=== PATIENT | male | born 2000 | race Caucasian/White ===

== ENCOUNTER 2018-02-09 15:16 | Day surgery (SDC) | payer BC ==
[~2018-02-09] VITALS: Ht 182.9 cm; Wt 79.8 kg
[2018-02-09] MEDS ORDERED: fentaNYL INJECTION 100 MCG/2 ML AMP ONE (15:59)
[2018-02-09] MEDS ORDERED: ONDANSETRON 4 MG/2 ML (SDV) Z0FRAN ONE (15:59)
[2018-02-09 16:12] LABS: BASOPHILS % (AUTO) 0 % (0-10); EOSINOPHILS % (AUTO) 0 % (0-10); HEMATOCRIT 44 % (40-54); HEMOGLOBIN 15.4 G/DL (13.3-17.7); LYMPHOCYTES % (AUTO) 6 % (12-44); MEAN CORPUSCULAR HEMOGLOBIN 29 PG (25-34); MEAN CORPUSCULAR HGB CONC 35 G/DL (32-36); MEAN CORPUSCULAR VOLUME 84 FL (80-99); MEAN PLATELET VOLUME 9.4 FL (7.4-10.4); MONOCYTES # (AUTO) 0.7 X 10^3 (0.0-1.0); MONOCYTES % (AUTO) 4 % (0-12); NEUTROPHILS % (AUTO) 89 % (42-75); PLATELET COUNT 278 10^3/uL (130-400); RED BLOOD COUNT 5.28 10^6/uL (4.35-5.85); WHITE BLOOD COUNT 16.7 10^3/uL (4.3-11.0)
--- NOTE | 2018-02-09 16:13 | ED Abdominal Pain ---
General Stated Complaint: STOMACH PAIN SENT FROM URGENT CARE Source of Information: Patient Exam Limitations: No Limitations History of Present Illness Date Seen by Provider: February 09, 2018 Time Seen by Provider: 16:10 Initial Comments The patient is a 17-year-old white male sent from an immediate care facility. He had developed abdominal pain in the periumbilical area yesterday. It abated for a while only to return. He finds it to be more comfortable to assume a hip flexion position. He also reports some loose stools. He has nausea but no vomiting. Has no previous history of abdominal surgeries Timing/Duration: 12-24 Hours Severity/Quality: Moderate Location: Periumbilical Radiation: No Radiation Activities at Onset: Activity Associated Symptoms: Denies Symptoms Allergies and Home Medications Allergies Coded Allergies: cefdinir (Unverified Allergy, Unknown, 02/09/18) Uncoded Allergies: PCN (Allergy, Unknown, 02/09/18) Home Medications No Active Prescriptions or Reported Meds Patient Home Medication List Home Medication List Reviewed: Yes Review of Systems Constitutional: see HPI EENTM: No Symptoms Reported Respiratory: No Symptoms Reported Cardiovascular: No Symptoms Reported Gastrointestinal: See HPI Genitourinary: No Symptoms Reported Musculoskeletal: no symptoms reported Skin: no symptoms reported Psychiatric/Neurological: No Symptoms Reported Endocrine: No Symptoms Reported Hematologic/Lymphatic: No Symptoms Reported Past Nvhzvaw-Dqjske-Fwqmae Hx Patient Social History Recent Foreign Travel: No Contact w/Someone Who Travel: No Physical Exam Vital Signs Vital Signs - First Documented 02/09/18 15:51 Temp 98.2 Pulse 64 Resp 18 B/P (MAP) 124/82 Capillary Refill : General Appearance: mild distress HEENT: normal ENT inspection Neck: non-tender, full range of motion, supple, normal inspection Respiratory: chest non-tender, lungs clear, normal breath sounds, no respiratory distress, no accessory muscle use Cardiovascular: normal peripheral pulses, regular rate, rhythm, no edema, no gallop, no JVD, no murmur Gastrointestinal: other (decreased bowel sounds. No guarding or rebound) Neurologic/Psychiatric: business systems developer II-XII nml as tested, no motor/sensory deficits, alert, normal mood/affect, oriented x 3 Skin: normal color, warm/dry Lymphatic: no adenopathy Progress/Results/Core Measures Results/Orders Lab Results Laboratory Tests Test 02/09/18 16:00 Range/Units White Blood Count 16.7 H 4.3-11.0 10^3/uL Red Blood Count 5.28 4.35-5.85 10^6/uL Hemoglobin 15.4 13.3-17.7 G/DL Hematocrit 44 40-54 % Mean Corpuscular Volume 84 80-99 FL Mean Corpuscular Hemoglobin 29 25-34 PG Mean Corpuscular Hemoglobin Concent 35 32-36 G/DL Red Cell Distribution Width 13.0 10.0-14.5 % Platelet Count 278 130-400 10^3/uL Mean Platelet Volume 9.4 7.4-10.4 FL Neutrophils (%) (Auto) 89 H 42-75 % Lymphocytes (%) (Auto) 6 L 12-44 % Monocytes (%) (Auto) 4 0-12 % Eosinophils (%) (Auto) 0 0-10 % Basophils (%) (Auto) 0 0-10 % Neutrophils # (Auto) 15.0 H 1.8-7.8 X 10^3 Lymphocytes # (Auto) 1.0 1.0-4.0 X 10^3 Monocytes # (Auto) 0.7 0.0-1.0 X 10^3 Eosinophils # (Auto) 0.0 0.0-0.3 10^3/uL Basophils # (Auto) 0.0 0.0-0.1 10^3/uL Neutrophils % (Manual) 84 % Lymphocytes % (Manual) 6 % Monocytes % (Manual) 5 % Eosinophils % (Manual) 1 % Basophils % (Manual) 0 % Metamyelocytes % 1 % Band Neutrophils 3 % Blood Morphology Comment NORMAL Sodium Level 138 135-145 MMOL/L Potassium Level 4.3 3.6-5.0 MMOL/L Chloride Level 103 98-107 MMOL/L Carbon Dioxide Level 24 21-32 MMOL/L Anion Gap 11 5-14 MMOL/L Blood Urea Nitrogen 12 7-18 MG/DL Creatinine 0.83 0.60-1.30 MG/DL Estimat Glomerular Filtration Rate > 60 BUN/Creatinine Ratio 14 Glucose Level 108 H 70-105 MG/DL Calcium Level 9.9 8.5-10.1 MG/DL Total Bilirubin 1.2 H 0.1-1.0 MG/DL Aspartate Amino Transf (AST/SGOT) 20 5-34 U/L Alanine Aminotransferase (ALT/SGPT) 23 0-55 U/L Alkaline Phosphatase 75 40-136 U/L Total Protein 7.8 6.4-8.2 GM/DL Albumin 4.7 H 3.2-4.5 GM/DL My Orders Orders - MAL BENJAMIN MD Fentanyl Injection (Sublimaze Injection (02/09/18 15:59) Cbc With Automated Diff (02/09/18 16:02) Comprehensive Metabolic Panel (02/09/18 16:02) Fentanyl Injection (Sublimaze Injection (02/09/18 16:15) Ondansetron Injection (Zofran Injectio (02/09/18 16:15) Ondansetron Injection (Zofran Injectio (02/09/18 15:59) Manual Differential (02/09/18 16:00) Ct Abd/Pelv W (Appendicitis) (02/09/18 16:36) Iohexol Injection (Omnipaque 350 Mg/Ml 1 (02/09/18 16:45) Ns (Ivpb) (Sodium Chloride 0.9% Ivpb Bag (02/09/18 16:45) Medications Given in ED Current Medications Medications Dose Ordered Sig/Heber Route Start Time Stop Time Status Last Admin Dose Admin Fentanyl Citrate 50 mcg ONCE ONCE IVP 02/09/18 16:15 02/09/18 16:16 DC 02/09/18 16:08 50 MCG Iohexol 100 ml ONCE ONCE IV 02/09/18 16:45 02/09/18 16:53 DC 02/09/18 16:52 100 ML Ondansetron HCl 8 mg ONCE ONCE IVP 02/09/18 16:15 02/09/18 16:16 DC 02/09/18 16:08 8 MG Sodium Chloride 100 ml ONCE ONCE IV 02/09/18 16:45 02/09/18 16:53 DC 02/09/18 16:52 100 ML Vital Signs/I&O 02/09/18 15:51 Temp 98.2 Pulse 64 Resp 18 B/P (MAP) 124/82 Departure Communication (Admissions) CT scan was somewhat ambivalent relative to the appendix. Discussed with Dr. Layne at 1755 and the patient will be admitted for observation. Impression Primary Impression: abdominal pain rule out appendicitis Disposition: ADMITTED INPATIENT Condition: Stable/Unchanged Admissions Decision to Admit Reason: Admit from ER (General) Decision to Admit/Date: February 09, 2018 Time/Decision to Admit Time: 18:13 Departure-Patient Inst. Referrals: BETTY ZAPATA DO (PCP/Family) Primary Care Physician Scripts No Active Prescriptions or Reported Meds MAL BENJAMIN MD February 09, 2018 16:13
[2018-02-09] MEDS ORDERED: ONDANSETRON 4 MG/2 ML (SDV) Z0FRAN IVP ONE (16:15)
[2018-02-09] MEDS ORDERED: fentaNYL INJECTION 100 MCG/2 ML AMP IVP ONE (16:15)
[2018-02-09 16:26] LABS: ALANINE AMINOTRANSFERASE 23 U/L (0-55); ALBUMIN 4.7 GM/DL (3.2-4.5); ALKALINE PHOSPHATASE 75 U/L (40-136); BILIRUBIN,TOTAL 1.2 MG/DL (0.1-1.0); BUN/CREATININE RATIO 14; CALCIUM 9.9 MG/DL (8.5-10.1); CARBON DIOXIDE 24 MMOL/L (21-32); CHLORIDE 103 MMOL/L (98-107); CREATININE SERUM 0.83 MG/DL (0.60-1.30); GFR ESTIMATED > 60; GLUCOSE 108 MG/DL (70-105); POTASSIUM 4.3 MMOL/L (3.6-5.0); SODIUM 138 MMOL/L (135-145); TOTAL PROTEIN 7.8 GM/DL (6.4-8.2)
[2018-02-09 16:37] LABS: BAND NEUTROPHILS 3 %; BASOPHILS % (MANUAL) 0 %; EOSINOPHILS % (MANUAL) 1 %; LYMPHOCYTES % (MANUAL) 6 %; METAMYELOCYTES % 1 %; MONOCYTES % (MANUAL) 5 %; NEUTROPHILS % (MANUAL) 84 %; RBC MORPH NORMAL
[2018-02-09] MEDS ORDERED: IOHEXOL 350 MG/ML 100 ML (OMNIPAQUE 350) VIAL IV ONE (16:45)
[2018-02-09] MEDS ORDERED: NS 100 ML (IVPB) BAG IV ONE (16:45)
--- NOTE | 2018-02-09 17:27 | Diagnostic Imaging Report ---
PROCEDURE: CT abdomen and pelvis with contrast, rule out appendicitis. TECHNIQUE: Multiple contiguous axial images were obtained through the abdomen and pelvis after the administration of intravenous contrast. INDICATION: Right lower quadrant abdominal pain. COMPARISON: None. FINDINGS: The appendix is fluid dilated, measuring up to 8.5 mm. There is no significant inflammatory change in the mesenteric fat. There is no abscess. However, there is trace free fluid in the pelvis which is typically abnormal with a male patient. There is some prominence and edema involving the prostate. Please correlate clinically to exclude prostatitis. Distal ureters and urinary bladder are grossly normal. Course and caliber of the large and small bowel are normal. Solid organs, gallbladder, vascular structures and lung bases are grossly unremarkable. Bony structures are age-appropriate. IMPRESSION: 1. Prominent noninflamed appendix which could represent a very mild acute appendicitis. Please correlate clinically. 2. Prominent edematous appearing prostate with trace free fluid in the pelvis. This could be a sequela of prostatitis. The fluid also could be secondary to a very mild appendicitis. 3. No abscess, free air or bowel obstruction. Dictated by: Dictated on workstation # [id number]
[2018-02-09] MEDS ORDERED: CIPROFLOXACIN IV 400MG/200ML 200 ML IV ONE (18:30)
[2018-02-09 19:10] VITALS: BP 127/72
--- NOTE | 2018-02-09 19:26 | Progress Note-Pre Operative ---
Pre-Operative Progress Note H&P Reviewed The H&P was reviewed, patient examined and no changes noted. Date Seen by Provider: February 09, 2018 Time Seen by Provider: 19:00 Date H&P Reviewed: February 09, 2018 Time H&P Reviewed: 19:00 Pre-Operative Diagnosis: acute appendicitis MARIA FERNANDA FELDER MD February 09, 2018 19:26
--- NOTE | 2018-02-09 19:55 | HISTORY AND PHYSICAL ---
DATE OF SERVICE: ATTENDING PRIMARY CARE PHYSICIAN: Dr. Hartley. HISTORY OF PRESENT ILLNESS: The patient is a 17-year-old male who presented to the Emergency Department with abdominal pain. He had reported developing periumbilical pain yesterday and then this went away; however, he then had more localized pain towards the right lower abdomen. He was seen at an urgent care facility and sent to the Emergency Department. He reports that the pain is still present and a torso flexion position decreases the pain. He also does report few episodes of diarrhea. No red blood per rectum, no dark tarry stools. No nausea, vomiting. A CT scan was performed which did show a significantly long and prominent appendix; however, no surrounding fluid. PAST MEDICAL HISTORY: None. PAST SURGICAL HISTORY: None. ALLERGIES: PENICILLIN. MEDICATIONS: None. SOCIAL HISTORY: Negative smoke, negative alcohol. FAMILY HISTORY: Noncontributory. VITAL SIGNS: Temperature 98.2, blood pressure 124/82, pulse 64, respirations 18. REVIEW OF SYSTEMS: This is a well-nourished male currently in no acute distress. He is not experiencing any shortness of breath or difficulty breathing. No chest pain, palpitations, diaphoresis. No nausea, vomiting with intermittent episodes of diarrhea, no red blood per rectum, no dark tarry stools. No fever, chills, no recent inadvertent weight loss. All other review of systems negative. PHYSICAL EXAMINATION: CHEST: Clear. Good breath sounds bilaterally. HEART: Regular, no murmurs. EXTREMITIES: No lower extremity edema, negative Homans sign. HEENT: No scleral icterus. No cervical lymphadenopathy. ABDOMEN: Soft, nondistended. There is pain around McBurney's point with voluntary guarding, no rebound tenderness. SKIN: Warm and dry. LABORATORY DATA: WBC 16.7, hemoglobin 15.4, hematocrit 44, platelets 278. ASSESSMENT AND PLAN: A 17-year-old male with right lower quadrant abdominal pain with equivocal CT scan findings which include a long and prominent appendix with slight dilatation which may indicate an early acute appendicitis. We will admit him and repeat labs as well as repeat examination and if he continues to have pain, we will proceed with a diagnostic laparoscopy and laparoscopic appendectomy. Job ID: [id number] DocumentID: [id number] Dictated Date: 02/09/2018 19:25:55 Granite Sandblaster Apprentice Date: 02/09/2018 19:54:06 Dictated By: MARIA FERNANDA FELDER MD
[2018-02-09] MEDS ORDERED: fentaNYL INJECTION 100 MCG/2 ML AMP IV PRN (20:45)
[2018-02-09] MEDS: metroNIDAZOLE 500 MG/100 ML IVPB (PRE-MIX) IV SCH (21:13)
[2018-02-09] MEDS: NS IV 1000 ML 1,000 ML IV SCH (21:13)
[2018-02-10 00:12] VITALS: BP 102/61
[2018-02-10] MEDS ORDERED: ONDANSETRON 4 MG/2 ML (SDV) Z0FRAN IVP PRN ×2 (01:45→14:30)
[2018-02-10 03:22] VITALS: BP 105/60
[2018-02-10] MEDS: metroNIDAZOLE 500 MG/100 ML IVPB (PRE-MIX) IV SCH ×3 (04:48→13:07)
[2018-02-10 06:26] LABS: BASOPHILS % (AUTO) 0 % (0-10); EOSINOPHILS # (AUTO) 0.1 10^3/uL (0.0-0.3); EOSINOPHILS % (AUTO) 1 % (0-10); HEMATOCRIT 43 % (40-54); HEMOGLOBIN 14.7 G/DL (13.3-17.7); LYMPHOCYTES # (AUTO) 2.5 X 10^3 (1.0-4.0); LYMPHOCYTES % (AUTO) 22 % (12-44); MEAN CORPUSCULAR HEMOGLOBIN 29 PG (25-34); MEAN CORPUSCULAR HGB CONC 34 G/DL (32-36); MEAN CORPUSCULAR VOLUME 86 FL (80-99); MEAN PLATELET VOLUME 9.6 FL (7.4-10.4); MONOCYTES # (AUTO) 0.9 X 10^3 (0.0-1.0); MONOCYTES % (AUTO) 8 % (0-12); NEUTROPHILS % (AUTO) 70 % (42-75); PLATELET COUNT 240 10^3/uL (130-400); RED CELL DISTRIBUTION WIDTH 13.1 % (10.0-14.5); WHITE BLOOD COUNT 11.4 10^3/uL (4.3-11.0)
[2018-02-10] MEDS ORDERED: CIPROFLOXACIN 400 MG/D5W 200 ML (PRE-MIX) IV SCH (06:30)
[2018-02-10 08:00] VITALS: BP 109/68
[2018-02-10] MEDS: NS IV 1000 ML 1,000 ML IV SCH (10:35)
[2018-02-10 12:00] VITALS: BP 112/61
[2018-02-10] MEDS ORDERED: BUP/EPI 0.5% 1:200,000 (SENSORCAINE) 30 ML VIAL ONE (12:26)
[2018-02-10] MEDS ORDERED: ROCURONIUM 10 MG/ML 5 ML SYRINGE IV ONE (12:36)
[2018-02-10] MEDS ORDERED: proPOfol 200 MG/20 ML (DIPRIVAN) VIAL IV ONE (12:36)
[2018-02-10] MEDS ORDERED: ONDANSETRON 4 MG/2 ML (SDV) Z0FRAN ONE (12:36)
[2018-02-10] MEDS ORDERED: LIDOCAINE PF 2% 5 ML (XYLOCAINE) VIAL ONE (12:36)
[2018-02-10] MEDS ORDERED: fentaNYL INJECTION 100 MCG/2 ML AMP ONE ×2 (12:37→13:43)
[2018-02-10] MEDS ORDERED: MIDAZOLAM 2 MG/2 ML (VERSED) VIAL ONE (12:37)
[2018-02-10] MEDS: LACTATED RINGERS 1,000 ML IV SCH ×2 (13:08→14:00)
[2018-02-10] MEDS ORDERED: SEVOFLURANE (ULTANE) 15 ML INHAL SOLN ONE (13:43)
[2018-02-10] MEDS ORDERED: DEXAMETHASONE 10 MG/ML (DECADRON) 1 ML VIAL ONE (13:43)
--- NOTE | 2018-02-10 14:01 | Progress Note-Post Operative ---
Post-Operative Progess Note Surgeon (s)/Watch Commander (s) Surgeon MARIA FERNANDA FELDER MD Watch Commander: clara wong NOUGAT CANDY MAKER HELPER Pre-Operative Diagnosis acute appendicitis Post-Operative Diagnosis same Procedure & Operative Findings Date of Procedure 02/10/18 Procedure Performed/Findings laparoscopic appendectomy Anesthesia Type GET Estimated Blood Loss Estimated blood loss (mL): minimal Specimens/Packing Specimens Removed appendix MARIA FERNANDA FELDER MD February 10, 2018 2:01 pm
[2018-02-10] MEDS ORDERED: HYDR-34 PO (14:04)
--- NOTE | 2018-02-10 14:04 | Discharge Inst-Surgical ---
D/C Lap Instructions-[place] New, Converted, or Re-Newed RX: RX on Chart Follow Up Appt in 2 weeks Activity as tolerated No driving for 24 hours No driving while on pain medications Incentive Spirometry use every 2 hours while awake Regular Diet Symptoms to Report: Fever over 101 degree F, Nausea/Vomiting Infection Signs and Symptoms to report: Increased redness, Foul odor of wound, Increased drainage Bathing instructions: May shower Operative Area Clean/Dry; Keep incision clean/dry If any problems/questions: Contact your physician or go to Emergency Room MARIA FERNANDA FELDER MD February 10, 2018 2:04 pm
--- NOTE | 2018-02-10 14:24 | Anesthesia-General Post-Op ---
General Patient Condition Mental Status/LOC: Same as Preop Cardiovascular: Satisfactory Nausea/Vomiting: Absent Respiratory: Satisfactory Pain: Controlled Complications: Absent Post Op Complications Complications None Follow Up Care/Instructions Patient Instructions None needed. Anesthesia/Patient Condition Patient Condition Patient is doing well, no complaints, stable vital signs, no apparent adverse anesthesia problems. No complications reported per nursing. TIMOTHY WILSON CRNA February 10, 2018 14:24
[2018-02-10] MEDS ORDERED: MEPERIDINE (DEMEROL) INJ 50 MG/ML IVP PRN (14:30)
[2018-02-10] MEDS ORDERED: morphine INJ 10 MG/ML 1ML (SYR OR VIAL) IVP PRN (14:30)
[2018-02-10] MEDS ORDERED: NEOSTIGMINE 1 MG/ML 5 ML SYRINGE ONE (14:33)
[2018-02-10] MEDS ORDERED: GLYCOPYRROLATE 0.2 MG/ML (ROBINUL) 2 ML VIAL ONE (14:33)
--- OUTSIDE RECORDS SUMMARY | 2018-02-10 16:27 | XMS REPORT ---
Author SIMON Shaffer Organization [employer] Address Unknown Phone Unavailable Care Team Providers Care Real Estate Rental Agent Name Role Phone SIMON JO CP Unavailable Allergies No Known Allergies Problems Problem Type Condition Code Onset Dates Condition Status Problem Allergic rhinitis due to pollen 477.0 Active Problem Acute pharyngitis 462 Active Problem Other general medical examination for administrative purposes V70.3 Active Problem Need for prophylactic vaccination and inoculation, Influenza V04.81 Active Assessment Encounter for immunization Z23 Active Medications No Known Medications Procedures Procedure Coding System Code Date SINGLE IMMUNIZATION ADMIN CPT-4 41930 Aug 19, 2015 FLUZONE QUAD (3 & UP)-SINGLE DOSE VIAL-SANOFI PASTEUR-2014 CPT-4 49029 Aug 19, 2015 Results No Known Results Immunizations Vaccine Administration Date FLUZONE QUAD (3 & UP)-SINGLE DOSE VIAL-SANOFI PASTEUR-2014Aug 19, 2015 Summary Purpose [employer] Submission
--- OUTSIDE RECORDS SUMMARY | 2018-02-10 16:27 | XMS REPORT | Continuity of Care Document ---
Author Author [facility] Address Unknown Phone Unavailable Allergies There is no data. Medications There is no data. Problems Date Dx Coded Attending Type Code Diagnosis Diagnosed By 01/05/2013 462 PHARYNGITIS ACUTE 01/05/2013 477.0 ALLERGIC RHINITIS DUE TO POLLEN 01/05/2013 462 PHARYNGITIS ACUTE 01/05/2013 477.0 ALLERGIC RHINITIS DUE TO POLLEN 01/05/2013 JO DO, SIMON K 462 PHARYNGITIS ACUTE 01/05/2013 JO DO, SIMON K 477.0 ALLERGIC RHINITIS DUE TO POLLEN 01/05/2013 RAJOTTE DEVULCANIZER CHARGER, HILDA A 462 PHARYNGITIS ACUTE 01/05/2013 RAJOTTE DEVULCANIZER CHARGER, HILDA A 477.0 ALLERGIC RHINITIS DUE TO POLLEN 04/29/2013 V70.3 SPORTS PHYSICAL 04/29/2013 JO DO, SIMON K V70.3 SPORTS PHYSICAL 04/29/2013 RAJOTTE DEVULCANIZER CHARGER, HILDA A V70.3 SPORTS PHYSICAL 09/19/2013 JO DO, SIMON K V04.81 FLU SHOT 09/19/2013 RAJOTTE DEVULCANIZER CHARGER, HILDA A V04.81 FLU SHOT 02/13/2016 BETTY ZAPATA DO, Ot Z11.2 ENCOUNTER FOR SCREENING FOR OTHER BACTER 02/27/2016 BETTY ZAPATA DO, Ot Z11.2 ENCOUNTER FOR SCREENING FOR OTHER BACTER 04/13/2016 BETTY ZAPATA DO, Ot Z11.2 ENCOUNTER FOR SCREENING FOR OTHER BACTER 04/13/2016 BETTY ZAPATA DO, Ot Z11.2 ENCOUNTER FOR SCREENING FOR OTHER BACTER 04/29/2017 BETTY ZAPATA DO, Ot Z11.2 ENCOUNTER FOR SCREENING FOR OTHER BACTER Procedures Code [place] [address] VISUAL ACUITY SCREEN 05/11/2013 83875 VISUAL ACUITY SCREEN 05/15/2014 Results There is no data. Encounters ACCT No. Visit Date/Time Discharge Status Pt. Type Provider Facility Loc./Unit Complaint [id number] 05/14/2014 15:05:00 05/14/2014 23:59:59 CLS Outpatient KALPANAJamey HILDA PARSONS [id number] 09/19/2013 12:57:00 09/19/2013 23:59:59 CLS Outpatient SIMON JO DO [id number] 04/29/2013 11:48:00 Document Registration [id number] 01/05/2013 11:37:00 Document Registration [id number] 02/10/2016 17:44:00 02/10/2016 23:59:59 CLS Outpatient BETTY ZAPATA DO Via [facility] LAB MRSA EXPOSURE [id number] 02/13/2018 10:15:00 PEN Preadmit JERALD ABDALLA, MIGNON Singh [facility] RAD GYNOMASTIC BILATERAL [id number] 02/09/2018 19:28:00 Document Registration
--- OUTSIDE RECORDS SUMMARY | 2018-02-10 16:47 | XMS REPORT | Continuity of Care Document ---
Author Author [facility] Address Unknown Phone Unavailable Allergies There is [...] ALLERGIC RHINITIS DUE TO POLLEN 01/05/2013 RAJOTTE MAINFRAME SOFTWARE DEVELOPER, HILDA A 462 PHARYNGITIS ACUTE 01/05/2013 RAJOTTE MAINFRAME SOFTWARE DEVELOPER, HILDA A 477.0 ALLERGIC RHINITIS DUE TO POLLEN 04/29/2013 V70.3 SPORTS PHYSICAL 04/29/2013 JO DO, SIMON K V70.3 SPORTS PHYSICAL 04/29/2013 RAJOTTE MAINFRAME SOFTWARE DEVELOPER, HILDA A V70.3 SPORTS PHYSICAL 09/19/2013 JO DO, SIMON K V04.81 FLU SHOT 09/19/2013 RAJOTTE MAINFRAME SOFTWARE DEVELOPER, HILDA A V04.81 FLU SHOT 02/13/2016 BETTY [...] Procedures Code Description [place] [address] VISUAL ACUITY SCREEN 05/11/2013 44946 VISUAL ACUITY SCREEN 05/15/2014 Results There is no data. Encounters ACCT No. Visit Date/Time Discharge Status Pt. Type Provider Facility Loc./Unit Complaint [id number] 05/14/2014 15:05:00 05/14/2014 23:59:59 CLS Outpatient KALPANAJamey HILDA PARSONS [id number] 09/19/2013 12:57:00 09/19/2013 23:59:59 CLS Outpatient SIMON JO DO [id number] 04/29/2013 11:48:00 Document Registration [id number] 01/05/2013 11:37:00 Document Registration [id number] 02/10/2016 17:44:00 02/10/2016 23:59:59 CLS Outpatient BETTY ZAPATA DO Via [facility] LAB MRSA EXPOSURE [id number] 02/13/2018 10:15:00 PEN Preadmit JERALD ABDALLA, MIGNON Singh [facility] RAD GYNOMASTIC BILATERAL [id number] 02/09/2018 19:28:00 Document Registration
[2018-02-10] MEDS ORDERED: HYDROcodone/APAP 7.5 MG/325 MG (LORTAB, LORCET PLUS) TABLET PO PRN (17:00)
--- NOTE | 2018-02-10 19:15 | OPERATIVE REPORT ---
DATE OF SERVICE: 02/10/2018 ATTENDING PRIMARY CARE PHYSICIAN: Dr. Hartley. PREOPERATIVE DIAGNOSIS: Acute appendicitis. POSTOPERATIVE DIAGNOSIS: Acute appendicitis. PROCEDURE: Laparoscopic appendectomy. SURGEON: Dr. Felder. LATHE SPOTTER: Nestor Edge APRN ANESTHESIA: General endotracheal. ESTIMATED BLOOD LOSS: Minimal. FINDINGS: Increased turgor pressure of the appendix, no perforation consistent with an early acute appendicitis. DISPOSITION: The patient tolerated the procedure well. INDICATIONS: The patient is a 17-year-old male who presented to the Emergency Department with abdominal pain. He reported developing periumbilical pain starting the day before, however, this went away on its own. He then had recurrent pain, which is more localized towards the right lower abdominal quadrant. He was seen at an urgent care facility and sent to the Emergency Department. He reports that the pain is still present, especially upon flexion of his torso. He reports that he has had similar episodes like this before in the past year; however, not much more mild. A CT scan was performed, which did show a significantly long and prominent appendix; however, no signs of perforation. DESCRIPTION OF PROCEDURE: The patient was brought to the operating room, laid supine on the table. After adequate IV pain and sedative medications and general endotracheal intubation, the abdomen was prepped and draped in standard surgical fashion. A 0.5% Marcaine with epinephrine was then used to anesthetize the overlying skin in the left upper abdominal quadrant and a small transverse skin incision made using a 15 blade. An 0 silk suture was applied to the medial aspect of the incision for retraction and a Veress needle inserted with a low opening pressure of 0 mmHg. The Veress needle removed and a 5 mm Xcel trocar placed followed by a 5 mm 45-degree angle laparoscope visualizing the peritoneal cavity. A 4-quadrant abdominal exploration was performed. There was a long and slightly dilated appendix with increased turgor pressure, however, no signs of perforation. It was visualized the omentum, small bowel, colon and liver appeared normal. Under direct visualization, we then proceed to place a supraumbilical 10 mm port after the skin and peritoneal lining were anesthetized using 0.5% Marcaine with epinephrine and a transverse skin incision made using a 15 blade. In a similar manner, a suprapubic 5 mm port was placed. The patient was then placed in Trendelenburg position as well as plane right side up, left side down. The appendix was retracted towards the anterior abdominal wall. The patient had a very short mesoappendix and we were able to take down some of the white lines of Toldt attachments with electrocautery and hook instrument. The appendix and the mesoappendix was then taken with the OLENA 45 mm stapler with a 2.5 mm thickness reload with visualization of good hemostasis. The appendix was removed through the 10 mm port site using an EndoCatch bag. A 10 mm port site fascia and peritoneum were then closed under direct visualization using a Gui-Gale device and 0 Vicryl suture. The abdomen was desufflated. The remaining ports removed. All skin incisions were closed using 4-0 Monocryl running subcuticular sutures. Wounds were then cleaned and covered with Dermabond. The patient tolerated procedure well. We will start IV and oral pain medication as well as a clear liquid diet. Once he is tolerating clears, has good pain control with oral pain medications, ambulating well, we will discharge him home. He will be instructed to do no heavy lifting or exertion for the next two weeks. Job ID: [id number] DocumentID: [id number] Dictated Date: 02/10/2018 14:10:29 Digital Content Manager Date: 02/10/2018 19:14:40 Dictated By: MARIA FERNANDA FELDER MD
[2018-02-12 00:11] VITALS: BP 151/72
--- OUTSIDE RECORDS SUMMARY | 2018-02-13 09:53 | XMS REPORT | Continuity of Care Document ---
Author Author [facility] Address Unknown Phone Unavailable Allergies There is [...] ALLERGIC RHINITIS DUE TO POLLEN 01/05/2013 RAJOTTE BEHAVIORAL MEDICAL DIRECTOR, HILDA A 462 PHARYNGITIS ACUTE 01/05/2013 RAJOTTE BEHAVIORAL MEDICAL DIRECTOR, HILDA A 477.0 ALLERGIC RHINITIS DUE TO POLLEN 04/29/2013 V70.3 SPORTS PHYSICAL 04/29/2013 JO DO, SIMON K V70.3 SPORTS PHYSICAL 04/29/2013 RAJOTTE BEHAVIORAL MEDICAL DIRECTOR, HILDA A V70.3 SPORTS PHYSICAL 09/19/2013 JO DO, SIMON K V04.81 FLU SHOT 09/19/2013 RAJOTTE BEHAVIORAL MEDICAL DIRECTOR, HILDA A V04.81 FLU SHOT 02/13/2016 BETTY [...] Procedures Code Description [place] [address] VISUAL ACUITY SCREEN 05/11/2013 73183 VISUAL ACUITY SCREEN 05/15/2014 Results There is no data. Encounters ACCT No. Visit Date/Time Discharge Status Pt. Type Provider Facility Loc./Unit Complaint [id number] 05/14/2014 15:05:00 05/14/2014 23:59:59 CLS Outpatient KALPANAJamey HILDA PARSONS [id number] 09/19/2013 12:57:00 09/19/2013 23:59:59 CLS Outpatient SIMON JO DO [id number] 04/29/2013 11:48:00 Document Registration [id number] 01/05/2013 11:37:00 Document Registration [id number] 02/10/2016 17:44:00 02/10/2016 23:59:59 CLS Outpatient BETTY ZAPATA DO [facility] MRSA EXPOSURE [id number] 02/13/2018 10:15:00 PEN Preadmit JERALD ABDALLA, MIGNON Singh [facility] RAD GYNOMASTIC BILATERAL [id number] 02/09/2018 19:28:00 Document Registration
== END 2018-02-10 18:50 | disposition home or self-care (01) ==
LOC: EDUNIT# 15:16 → ER 15:18 → UNDOADMOB 18:15 → SDC 18:15 → 4TH 18:15 → UNDODISOB 02-10 18:50 → SDC 02-10 18:50
PROVIDERS: ATTEND Surgery
DX: K35.80 Unspecified acute appendicitis (principal)
CPT/HCPCS: 36415; 74177; 80053; 85007; 85025; 85027; 87081; 88304; 96374; 96375

== ENCOUNTER → 2018-02-13 | Outpatient (CLI) | payer BC ==
[~2018-02-13] MED LIST: HYDR-34 PO
--- NOTE | 2018-02-14 09:46 | RADIOLOGY REPORT ---
NAME: JAIDEN WINTERS [facility] REC#: [id number] PT STATUS: REG CLI : 2000 PHYSICIAN: DIPAK ZAPATA L ARNP [facility] ADMIT DATE: 02/13/18/RAD CORRECTED Signed Date of Exam:02/13/18 US BREAST COMPLETE BILATERAL INDICATION: Bilateral gynecomastia. EXAMINATION: Sonographic interrogation of the retroareolar regions of the right and left breast were obtained. FINDINGS: There are areas of hypoechogenicity, bilaterally. This appears to be symmetric and resembles gynecomastia. A region on the left is 2.0 x 0.8 x 2.3 cm. Region on the right measures 2.5 x 0.9 x 1.8 cm. Upper and lower right and left quadrants were also evaluated in both breasts and were unremarkable. IMPRESSION: Findings suggestive of bilateral gynecomastia. ACR BI-RADS Category 2: Benign findings. Result letter will be mailed to the patient. Note: At least 10% of breast cancer is not imaged by mammography. Dictated by: Dictated on workstation # [id number] Dict: 02/13/18 1216 Trans: 02/14/18 0805 [facility] [id number] Interpreted by: FREDDY JESUS MD Electronically signed by: FREDDY JESUS MD 02/14/18 0805 [facility]
== END ==
LOC: RAD 10:10
PROVIDERS: ATTEND Nurse Practitioner Family
DX: N62 Hypertrophy of breast (principal)

== ENCOUNTER 2018-06-30 09:55 | Outpatient (RCR) | payer BC ==
[~2018-06-30] VITALS: Ht 185.4 cm; Wt 83.9 kg
[2018-06-30] VITALS (14 sets, daily range): BP systolic 108–126; BP diastolic 57–77
[2018-06-30] MEDS ORDERED: ONDANSETRON 4 MG/2 ML (SDV) Z0FRAN IV PRN ×2 (10:45→14:15)
[2018-06-30] MEDS ORDERED: KETOROLAC 30 MG/ML VIAL IV PRN (10:45)
[2018-06-30] MEDS ORDERED: CATHETER FLUSH 10 ML SYR IV PRN (10:45)
[2018-06-30] MEDS: LACTATED RINGERS 1,000 ML IV SCH ×2 (11:04→12:04)
[2018-06-30 11:06] LABS: HEMOGLOBIN 14.3 G/DL (13.3-17.7); MEAN PLATELET VOLUME 10.7 FL (7.4-10.4); RED BLOOD COUNT 4.93 10^6/uL (4.35-5.85); RED CELL DISTRIBUTION WIDTH 13.4 % (10.0-14.5); WHITE BLOOD COUNT 8.4 10^3/uL (4.3-11.0)
[2018-06-30 11:32] LABS: ALANINE AMINOTRANSFERASE 674 U/L (0-55); ALBUMIN 3.9 GM/DL (3.2-4.5); ALKALINE PHOSPHATASE 176 U/L (40-136); BILIRUBIN,TOTAL 2.3 MG/DL (0.1-1.0); BUN/CREATININE RATIO 16; CALCIUM 9.2 MG/DL (8.5-10.1); CARBON DIOXIDE 23 MMOL/L (21-32); CHLORIDE 101 MMOL/L (98-107); CREATININE SERUM 0.94 MG/DL (0.60-1.30); GFR ESTIMATED > 60; GLUCOSE 103 MG/DL (70-105); POTASSIUM 3.8 MMOL/L (3.6-5.0); SODIUM 136 MMOL/L (135-145); TOTAL PROTEIN 7.6 GM/DL (6.4-8.2)
[2018-06-30] MEDS ORDERED: BENZONATATE 100 MG (TESSALON) CAPSULE PO PRN (14:15)
[2018-06-30] MEDS ORDERED: MILK OF MAGNESIA 400 MG/5 ML 30 ML UDC PO PRN (14:15)
[2018-06-30] MEDS ORDERED: MELATONIN 3 MG TABLET PO PRN (14:15)
[2018-06-30] MEDS ORDERED: ANTACID SUSP 30 ML UDC (MYLANTA) PO PRN (14:15)
[2018-06-30] MEDS ORDERED: IOHEXOL 350 MG/ML 100 ML (OMNIPAQUE 350) VIAL IV ONE (14:30)
[2018-06-30] MEDS ORDERED: NS 250 ML (IVPB) BAG IV ONE (14:30)
--- NOTE | 2018-06-30 14:33 | History & Physical-Hospitalist ---
History of Present Illness HPI/Chief Complaint Pt is a 18yoCM who has had a week long illness. He states that 1 week ago he developed a cough with yellow sputum and fever. He was seen at an urgent care and diagnosed with pneumonia and started on Levaquin. Despite this he continued to worsen with fevers up to 103.5 He also had myalgias and thus was started on Tamiflu by his PCP Mouna Hartley. He developed nausea and vomiting with tamiflu though and has only been able to keep 3 doses down. He was seen by Mouna Hartley today and was tachycardiac at 118 and remained febrile at 102.6 so was sent to outpatient surgery for IV fluids and labs. His labs revealed a significant transaminitis with elevated total bilirubin so decision was made for admission. He now complains of some right/mid lower abdomen pain. He had his appendix taken out in January of this year. He states the abd pain is worse with movement. Source: patient Date Seen 06/30/18 Time Seen by a Provider: 14:21 Attending Physician Marcia Moreau MD PCP Mark Hartley DO Referring Physician Date of Admission Home Medications & Allergies Home Medications Reviewed patient Home Medication Reconciliation performed by pharmacy medication reconciliations digital technician and/or nursing. Patients Allergies have been reviewed. Allergies Allergies Coded Allergies Beef Containing Products (Verified Allergy, Unknown, 02/10/18) Pork/Porcine Containing Products (Verified Allergy, Unknown, 02/10/18) cefdinir (Unverified Allergy, Unknown, 02/09/18) Uncoded Allergies PCN ( Allergy, Unknown, 02/09/18) Past Tywdptk-Ungikz-Gcyult Hx Past Med/Social Hx: Reviewed Nursing Past Med/Soc Hx Patient Social History Marrital Status: single Alcohol Use: Occasionally Uses Smoking Status: Never a Smoker 2nd Hand Smoke Exposure: No Recent Foreign Travel: No Contact w/other who traveled: No Recent Hopitalizations: No Recent Infectious Disease Expo: No Immunizations Up To Date Tetanus Booster (TDap): Less than 5yrs Seasonal Allergies Seasonal Allergies: No Past Medical History Surgeries: Appendectomy Genitourinary: UTI (peds) Musculoskeletal: Fractures History of Blood Disorders: No Family History Reviewed Nursing Family Hx Patient reports no known family medical history. Heart Disease, Cancer, CVA Review of Systems Constitutional: diaphoresis, fever, weakness EENTM: nose congestion; No blurred vision, No double vision, No throat pain Respiratory: cough, phlegm Cardiovascular: No chest pain, No edema, No palpitations Gastrointestinal: abdominal pain (RLQ); No diarrhea; loss of appetite, nausea, vomiting Genitourinary: No discharge, No dysuria Musculoskeletal: back pain, joint pain, muscle pain Skin: no symptoms reported Psychiatric/Neurological: No Symptoms Reported Physical Exam Physical Exam Vital Signs Vital Signs - First Documented 06/30/18 09:45 Pulse 94 Resp 16 B/P (MAP) 118/76 Pulse Ox 99 O2 Delivery Room Air Capillary Refill : Less Than 3 Seconds Height, Weight, BMI Height: 6'0.00" Weight: 176lbs. 8.0oz. [id number]; 23.9 BMI Method:Stated General Appearance: No Apparent Distress, WD/WN Neck: Non Tender, Supple Respiratory: Lungs Clear, No Respiratory Distress Cardiovascular: Regular Rate, Rhythm, No Murmur, Normal Peripheral Pulses Gastrointestinal: Normal Bowel Sounds, Non Tender, Soft Extremity: No Calf Tenderness, No Pedal Edema Neurologic/Psychiatric: Alert, Oriented x3, No Motor/Sensory Deficits, Normal Mood/Affect Skin: Normal Color, Warm/Dry; No Cool; Diaphoresis; No Petechia Results Results/Procedures Labs Laboratory Tests 06/30/18 10:55 Patient resulted labs reviewed. Assessment/Plan Admission Diagnosis Sepsis Admission Status: Inpatient Order (span 2 midnights) Reason for Inpatient Admission: failed outpatient management, will likely need more than two midnight to improve for discharge Diagnosis/Problems Diagnosis/Problems (1) Sepsis Assessment & Plan: Due to unknown organism at this time CXR ordered, CT abd/pelvis ordered Already had CBC/BMP, will get blood cultures and lactic acid Qualifiers: Sepsis type: sepsis due to unspecified organism Qualified Codes: A41.9 - Sepsis, unspecified organism (2) Abdominal pain Assessment & Plan: Will get CT of abdomen If negative will get RUQ Discussed with Dr Layne who will see today Qualifiers: Abdominal location: right lower quadrant Qualified Codes: R10.31 - Right lower quadrant pain (3) Transaminitis Assessment & Plan: New CT abd/pelv Has been taking frequent Tylenol due to fever (4) Thrombocytopenia Assessment & Plan: New onset as well Trend Discussed with lab to see if clumped but unable to find report Will recheck CBC ARPITA MOREAUN M MD Jun 30, 2018 14:33
--- NOTE | 2018-06-30 14:46 | Diagnostic Imaging Report ---
INDICATION: Cough and fever. No prior examinations are available for comparison. FINDINGS: The heart size, mediastinal configuration, and pulmonary vascularity are within normal limits. There is no pleural effusion, pneumothorax, or pneumonia. The osseous structures are unremarkable. IMPRESSION: No acute cardiopulmonary abnormality. Dictated by: Dictated on workstation # [id number]
[2018-06-30] MEDS ORDERED: LEVO500T2 PO (15:03)
[2018-06-30] MEDS: MEROPENEM 500 MG in NS (IVPB) 100 ML IV SCH ×2 (15:03→20:23)
[2018-06-30] MEDS: NS IV 1000 ML 1,000 ML IV SCH (15:03)
[2018-06-30] MEDS ORDERED: OSLT75C PO (15:05)
[2018-06-30 15:23] LABS: BASOPHILS # (AUTO) 0.6 10^3/uL (0.0-0.1); BASOPHILS % (AUTO) 7 % (0-10); EOSINOPHILS % (AUTO) 0 % (0-10); HEMATOCRIT 36 % (40-54); HEMOGLOBIN 12.6 G/DL (13.3-17.7); LYMPHOCYTES # (AUTO) 5.7 X 10^3 (1.0-4.0); LYMPHOCYTES % (AUTO) 72 % (12-44); MEAN CORPUSCULAR HEMOGLOBIN 29 PG (25-34); MEAN CORPUSCULAR HGB CONC 35 G/DL (32-36); MEAN CORPUSCULAR VOLUME 83 FL (80-99); MEAN PLATELET VOLUME 11.1 FL (7.4-10.4); MONOCYTES # (AUTO) 1.3 X 10^3 (0.0-1.0); MONOCYTES % (AUTO) 16 % (0-12); NEUTROPHILS # (AUTO) 0.3 X 10^3 (1.8-7.8); NEUTROPHILS % (AUTO) 4 % (42-75); RED BLOOD COUNT 4.31 10^6/uL (4.35-5.85); RED CELL DISTRIBUTION WIDTH 13.3 % (10.0-14.5); WHITE BLOOD COUNT 7.9 10^3/uL (4.3-11.0)
[2018-06-30 15:26] LABS: PLATELET COUNT 77 10^3/uL (130-400)
[2018-06-30 15:39] LABS: INR 1.3 (0.8-1.4); PROTHROMBIN TIME PATIENT 15.8 SEC (12.2-14.7)
--- NOTE | 2018-06-30 15:39 | Diagnostic Imaging Report ---
PROCEDURE: CT abdomen and pelvis with contrast. TECHNIQUE: Multiple contiguous axial images were obtained through the abdomen and pelvis after administration of intravenous contrast. INDICATION: Right lower quadrant pain and transaminitis with fever and cough. COMPARISON: Comparison is made with the prior examination dated 02/09/2018. FINDINGS: The heart size is normal. The lung bases are clear. The liver is normal in size without focal lesions. There is no biliary duct dilatation. There is splenomegaly with the spleen measuring up to 19.3 cm. The pancreas, adrenal glands and kidneys are unremarkable. The aorta is nonaneurysmal. Bowel gas pattern is nonspecific. There is no ascites. There is no free air. There are no focal inflammatory changes. Pancreas is not well visualized, however there is no secondary evidence of appendicitis. The osseous structures are unremarkable. IMPRESSION: Splenomegaly. No other acute abnormality in the abdomen or pelvis. Specifically, there is no definitive CT evidence of appendicitis. Dictated by: Dictated on workstation # [id number]
[2018-06-30 15:55] LABS: BILIRUBIN,URINE NEGATIVE (NEGATIVE); CLARITY,URINE CLEAR; COLOR,URINE YELLOW; GLUCOSE, URINE (UA) NEGATIVE (NEGATIVE); KETONES,URINE NEGATIVE (NEGATIVE); LEUKOCYTE ESTERASE ,URINE NEGATIVE (NEGATIVE); NITRITE,URINE NEGATIVE (NEGATIVE); PH,URINE 7 (5-9); PROTEIN,URINE 1+ (NEGATIVE); UROBILINOGEN,URINE 4 MG/DL (NORMAL)
[2018-06-30 16:09] LABS: BACTERIA,URINE NEGATIVE /HPF; WBC,URINE RARE /HPF
[2018-06-30 16:17] LABS: BAND NEUTROPHILS 3 %; BASOPHILS % (MANUAL) 0 %; EOSINOPHILS % (MANUAL) 1 %; LYMPHOCYTES % (MANUAL) 61 %; MONOCYTES % (MANUAL) 11 %; NEUTROPHILS % (MANUAL) 17 %; RBC MORPH NORMAL; REACTIVE LYMPHOCYTES 7 %
[2018-06-30] MEDS: ACETAMINOPHEN 325 MG TABLET PO PRN (17:59)
[2018-06-30] MEDS: LACTOBACILLUS ACIDOPHILUS (PROBIOTIC) CAPSULE PO SCH (17:59)
[2018-06-30] MEDS ORDERED: FLU QUADRIvalent (5+ YOA) 2018-2019 (AFLURIA) 0.5 ML IM ONE (18:15)
[2018-06-30] MEDS ORDERED: HYDROcodone/APAP 5 MG/325 MG (LORTAB) TAB PO PRN (18:15)
--- NOTE | 2018-06-30 18:33 | CONSULTATION REPORT ---
DATE OF SERVICE: 06/30/2018 ATTENDING PRIMARY CARE PHYSICIAN: Dr. Hartley. ADMITTING PHYSICIAN: Dr. Sinclair. HISTORY OF PRESENT ILLNESS: The patient is a 18-year-old male known to us. We had initially seen in 01/2018 for pain in the right lower abdominal quadrant with mild fevers and anorexia. A CT scan was performed, which showed a long and tortuous appendix with some mild edema consistent with an early appendicitis. He then underwent a diagnostic laparoscopy and found to have an early acute appendicitis and underwent an appendectomy. He did well after the surgery and was sent home later that day. He presents with a week long illness, which first developed with cough and yellow sputum as well as fever. He was seen in urgent care, diagnosed with pneumonia, started on Levaquin. He reports that despite taking antibiotics and drinking fluids, he continued to worsen and developed fevers of up to 103.5 as well as myalgias. He was admitted and started on IV fluids and did have some laboratory work done. His white count is normal; however, did have elevation of liver function and enzymes as well as a total bilirubin of 2.3. A CT scan was taken, which did show a significant splenomegaly. A mononucleosis test was also positive. The most likely etiology of his symptoms is active mononucleosis from the Gopal-Saenz virus and the treatment would be supportive care with continued IV hydration and pain control as well as other supportive care. PAST MEDICAL HISTORY: None. PAST SURGICAL HISTORY: Laparoscopic appendectomy in 01/2018. ALLERGIES: CEFDINIR, PENICILLIN. SOCIAL HISTORY: Negative smoke. Occasional alcohol. FAMILY HISTORY: Noncontributory. LABORATORY DATA: WBC 8.4, hemoglobin 14.3, hematocrit 41, platelets 90, total bilirubin 2.3, AST 402, ALT 674. Serology was positive for mono screen. REVIEW OF SYSTEMS: A well-nourished male currently in no acute distress. He is not experiencing any shortness of breath or difficulty breathing. No chest pain, palpitations, or diaphoresis. Intermittent episodes of nausea. No vomiting with crampy abdominal pain, which he states is on the right side; however, is also elicited in the mid abdominal region as well as a left upper abdominal quadrant. There are no peritoneal signs. Intermittent fevers and chills as well as diffuse arthralgia. No known diarrhea, constipation, no red blood per rectum, no dark tarry stools. Recent fevers and chills. No recent inadvertent weight loss. All other review of systems are negative. PHYSICAL EXAMINATION: CHEST: Clear. Good breath sounds bilaterally. HEART: Regular, no murmurs. EXTREMITIES: No lower extremity edema, negative Homans sign. HEENT: No scleral icterus. NECK: No cervical lymphadenopathy. ABDOMEN: Soft. There is pain upon palpation along the right upper and lower abdominal quadrant mid gastric region as well as the left upper abdominal quadrant with no peritoneal signs. SKIN: Warm, dry. ASSESSMENT AND PLAN: A 18-year-old male with active mononucleosis. We will continue with conservative management with IV hydration, pain control and monitoring for any superinfection and need for antibiotics. Either way, we will continue with supportive care and monitoring. Job ID: [id number] DocumentID: [id number] Dictated Date: 06/30/2018 18:16:47 Safety Aide Date: 06/30/2018 18:32:13 Dictated By: MARIA FERNANDA FELDER MD
[2018-06-30] MEDS: ONDANSETRON 4 MG/2 ML (SDV) Z0FRAN IV PRN (19:47)
[2018-06-30] MEDS: IBUPROFEN 600 MG (MOTRIN) TAB PO SCH (20:23)
[2018-06-30] MEDS: HYDROcodone/APAP 5 MG/325 MG (LORTAB) TAB PO PRN (22:07)
[2018-07-01] VITALS: BP 121/58
[2018-07-01] MEDS: NS IV 1000 ML 1,000 ML IV SCH ×4 (01:09→18:56)
[2018-07-01] MEDS: MEROPENEM 500 MG in NS (IVPB) 100 ML IV SCH ×2 (02:09→08:35)
[2018-07-01 04:00] VITALS: BP 119/59
[2018-07-01 05:54] LABS: HEMATOCRIT 43 % (40-54); HEMOGLOBIN 14.9 G/DL (13.3-17.7); MEAN CORPUSCULAR HEMOGLOBIN 29 PG (25-34); MEAN CORPUSCULAR HGB CONC 35 G/DL (32-36); MEAN CORPUSCULAR VOLUME 83 FL (80-99); MEAN PLATELET VOLUME 11.4 FL (7.4-10.4); PLATELET COUNT 99 10^3/uL (130-400); RED BLOOD COUNT 5.18 10^6/uL (4.35-5.85); RED CELL DISTRIBUTION WIDTH 14.2 % (10.0-14.5); WHITE BLOOD COUNT 12.4 10^3/uL (4.3-11.0)
[2018-07-01] MEDS: IBUPROFEN 600 MG (MOTRIN) TAB PO SCH ×3 (05:57→21:36)
[2018-07-01] MEDS: LACTOBACILLUS ACIDOPHILUS (PROBIOTIC) CAPSULE PO SCH ×3 (05:57→17:17)
[2018-07-01 06:15] LABS: ALANINE AMINOTRANSFERASE 548 U/L (0-55); ALBUMIN 3.5 GM/DL (3.2-4.5); ALKALINE PHOSPHATASE 179 U/L (40-136); BILIRUBIN,TOTAL 2.2 MG/DL (0.1-1.0); BUN/CREATININE RATIO 14; CALCIUM 8.7 MG/DL (8.5-10.1); CARBON DIOXIDE 23 MMOL/L (21-32); CHLORIDE 105 MMOL/L (98-107); CREATININE SERUM 0.83 MG/DL (0.60-1.30); GFR ESTIMATED > 60; GLUCOSE 92 MG/DL (70-105); POTASSIUM 4.3 MMOL/L (3.6-5.0); SODIUM 136 MMOL/L (135-145); TOTAL PROTEIN 7.1 GM/DL (6.4-8.2)
[2018-07-01 06:38] LABS: BAND NEUTROPHILS 2 %; NEUTROPHILS % (MANUAL) 8 %
[2018-07-01 06:39] LABS: LYMPHOCYTES % (MANUAL) 36 %; MONOCYTES % (MANUAL) 16 %; RBC MORPH NORMAL; REACTIVE LYMPHOCYTES 38 %; SMUDGE CELLS SLIGHT
[2018-07-01 08:00] VITALS: BP 116/62
--- NOTE | 2018-07-01 10:08 | Progress Note-Hospitalist ---
Subjective HPI/CC On Admission Date Seen by Provider: Jul 01, 2018 Time Seen by Provider: 10:03 Pt is a 18yoCM who has had a week long illness. He states that 1 week ago he developed a cough with yellow sputum and fever. He was seen at an urgent care and diagnosed with pneumonia and started on Levaquin. Despite this he continued to worsen with fevers up to 103.5 He also had myalgias and thus was started on Tamiflu by his PCP Mouna Hartley. He developed nausea and vomiting with tamiflu though and has only been able to keep 3 doses down. He was seen by Mouna Hartley today and was tachycardiac at 118 and remained febrile at 102.6 so was sent to outpatient surgery for IV fluids and labs. His labs revealed a significant transaminitis with elevated total bilirubin so decision was made for admission. He now complains of some right/mid lower abdomen pain. He had his appendix taken out in January of this year. He states the abd pain is worse with movement. Subjective/Events-last exam Pt reports feeling better today but very tired and sweaty today. Eating well today. Focused Exam Lactate Level 06/30/18 15:05: Lactic Acid Level 1.84 Objective Exam Vital Signs Vital Signs Date Time Temp Pulse Resp B/P (MAP) Pulse Ox O2 Delivery O2 Flow Rate FiO2 07/01/18 08:00 96.9 73 20 116/62 (80) 99 Room Air 06/30/18 15:15 97.00 Capillary Refill : Less Than 3 SecondsLess Than 3 Seconds General Appearance: No Apparent Distress, WD/WN Respiratory: Lungs Clear, No Respiratory Distress Cardiovascular: Regular Rate, Rhythm, No Murmur Gastrointestinal: Normal Bowel Sounds, Soft Neurologic/Psychiatric: Alert, Oriented x3, Normal Mood/Affect Results/Procedures Lab Laboratory Tests 06/30/18 10:55 06/30/18 15:05 07/01/18 05:25 Patient resulted labs reviewed. Assessment/Plan Assessment and Plan Assess & Plan/Chief Complaint Acute Cache Diagnosis/Problems Diagnosis/Problems (1) Mononucleosis, infectious, with hepatitis Status: Acute Assessment & Plan: Acute mono Will continue supportive treatment transaminitis improving CT abd significant only for splenomegaly Discussed precautions with patient (2) Tularemia Assessment & Plan: Titers 1:40 Called and discussed with PCP Mouna Hartley who will follow as an outpatient Will start on doxycycline (3) Sepsis Status: Resolved Assessment & Plan: Now resolved Qualifiers: Sepsis type: sepsis due to unspecified organism Qualified Codes: A41.9 - Sepsis, unspecified organism (4) Abdominal pain Assessment & Plan: Abd pain improved CT Abd just shows splenomegaly Qualifiers: Abdominal location: right lower quadrant Qualified Codes: R10.31 - Right lower quadrant pain (5) Transaminitis Assessment & Plan: As above (6) Thrombocytopenia Assessment & Plan: Improving Likely due to mono and splenomegaly Clinical Quality Measures DVT/VTE Risk/Contraindication: Risk Factor Score Per Nursin RFS Level Per Nursing on Admit: 3=High MARCIA MOREAU MD Jul 01, 2018 10:08
[2018-07-01] MEDS: DOXYCYCLINE 100 MG (VIBRAMYCIN) TABLET PO SCH ×2 (10:56→17:17)
[2018-07-01 12:00] VITALS: BP 109/63
[2018-07-01] MEDS: ONDANSETRON 4 MG/2 ML (SDV) Z0FRAN IV PRN ×2 (14:28→19:24)
[2018-07-01] MEDS: HYDROcodone/APAP 5 MG/325 MG (LORTAB) TAB PO PRN (14:43)
[2018-07-01] MEDS: ACETAMINOPHEN 325 MG TABLET PO PRN (15:30)
[2018-07-01 15:35] VITALS: BP 118/67
[2018-07-01] MEDS ORDERED: PROMETHAZINE INJ 25 MG/ML (PHENERGAN) AMP IVP PRN (19:15)
--- NOTE | 2018-07-01 19:52 | Progress Note (SOAP) ---
Subjective Date Seen by a Provider: Jul 01, 2018 Time Seen by a Provider: 19:00 Subjective/Events-last exam clinically looks much better. had two meals today and states he ate greater than 80% of both but still has waves of intermittent nausea. also does have some intermittent fevers. minimal abd pain. 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 based on symptomatology , lymphadenopathy, fatigue, splenomegaly feel most likely acute mono. Focused Exam Lactate Level 06/30/18 15:05: Lactic Acid Level 1.84 Objective Exam Vital Signs Date Time Temp Pulse Resp B/P (MAP) Pulse Ox O2 Delivery O2 Flow Rate FiO2 07/01/18 16:25 99.2 07/01/18 15:35 101.0 97 16 118/67 (84) 97 Room Air 07/01/18 15:30 101.2 07/01/18 12:00 98.4 82 20 109/63 (78) 98 Room Air 07/01/18 08:47 Room Air 07/01/18 08:00 96.9 73 20 116/62 (80) 99 Room Air 07/01/18 04:00 95.9 68 20 119/59 (79) 97 Room Air 07/01/18 00:55 97.8 07/01/18 00:05 100.1 07/01/18 00:00 97.1 77 20 121/58 (79) 97 Room Air 06/30/18 23:13 99.9 06/30/18 22:36 100.8 06/30/18 22:36 100.8 06/30/18 22:07 101.0 06/30/18 22:00 101.1 06/30/18 21:30 101.1 06/30/18 21:00 101.3 06/30/18 20:23 101.3 06/30/18 20:00 Room Air I & O 07/01/18 07:00 Intake Total 1950 ml Balance 1950 ml Capillary Refill : Less Than 3 SecondsLess Than 3 Seconds General Appearance: No Apparent Distress HEENT: PERRL/EOMI Neck: Full Range of Motion, Lymphadenopathy (R) Respiratory: Chest Non Tender, Lungs Clear, Normal Breath Sounds Cardiovascular: Regular Rate, Rhythm Gastrointestinal: normal bowel sounds, soft, tenderness Extremity: Normal Capillary Refill Neurologic/Psychiatric: Alert, Oriented x3 Skin: Normal Color Lymphatic: Other (right cervical lymphadenopathy) Results Lab Laboratory Tests 07/01/18 05:25: White Blood Count 12.4H, Red Blood Count 5.18, Hemoglobin 14.9, Hematocrit 43, Mean Corpuscular Volume 83, Mean Corpuscular Hemoglobin 29, Mean Corpuscular Hemoglobin Concent 35, Red Cell Distribution Width 14.2, Platelet Count 99L, Mean Platelet Volume 11.4H, Neutrophils (%) (Auto) , Lymphocytes (%) (Auto) , Monocytes (%) (Auto) , Eosinophils (%) (Auto) , Basophils (%) (Auto) , Neutrophils # (Auto) , Lymphocytes # (Auto) , Monocytes # (Auto) , Eosinophils # (Auto) , Basophils # (Auto) , Neutrophils % (Manual) 8, Lymphocytes % (Manual ) 36, Monocytes % (Manual) 16, Band Neutrophils 2, Reactive Lymphocytes 38, Smudge Cells SLIGHT, Blood Morphology Comment NORMAL, Sodium Level 136, Potassium Level 4.3, Chloride Level 105, Carbon Dioxide Level 23, Anion Gap 8, Blood Urea Nitrogen 12, Creatinine 0.83, Estimat Glomerular Filtration Rate > 60 , BUN/Creatinine Ratio 14, Glucose Level 92, Calcium Level 8.7, Corrected Calcium 9.1, Total Bilirubin 2.2H, Aspartate Amino Transf (AST/SGOT) 313H, Alanine Aminotransferase (ALT/SGPT) 548#H, Alkaline Phosphatase 179H, Total Protein 7.1, Albumin 3.5 Microbiology 06/30/18 Blood Culture - Preliminary, Resulted No growth 06/30/18 Gram Stain, Resulted Pending 06/30/18 Sputum Culture - Preliminary, Resulted Usual upper respiratory joe Assessment/Plan Assessment/Plan Assess & Plan/Chief Complaint acute mono. continue vibramycin. no contact/strenuous activities for a least 6 weeks. Clinical Quality Measures DVT/VTE Risk/Contraindication: Risk Factor Score Per Nursin RFS Level Per Nursing on Admit: 3=High MARIA FERNANDA FELDER MD Jul 01, 2018 19:52
[2018-07-01 20:00] VITALS: BP 121/72
[2018-07-02] VITALS: BP 119/57
[2018-07-02] MEDS: NS IV 1000 ML 1,000 ML IV SCH ×3 (03:05→18:42)
[2018-07-02 04:00] VITALS: BP 123/74
[2018-07-02 06:08] LABS: EOSINOPHILS # (AUTO) 0.1 10^3/uL (0.0-0.3); EOSINOPHILS % (AUTO) 1 % (0-10); HEMATOCRIT 38 % (40-54); HEMOGLOBIN 13.2 G/DL (13.3-17.7); LYMPHOCYTES # (AUTO) 8.8 X 10^3 (1.0-4.0); LYMPHOCYTES % (AUTO) 75 % (12-44); MEAN CORPUSCULAR HEMOGLOBIN 30 PG (25-34); MEAN CORPUSCULAR HGB CONC 35 G/DL (32-36); MEAN CORPUSCULAR VOLUME 85 FL (80-99); MEAN PLATELET VOLUME 11.1 FL (7.4-10.4); MONOCYTES % (AUTO) 17 % (0-12); PLATELET COUNT 84 10^3/uL (130-400); RED BLOOD COUNT 4.45 10^6/uL (4.35-5.85); RED CELL DISTRIBUTION WIDTH 14.2 % (10.0-14.5); WHITE BLOOD COUNT 11.8 10^3/uL (4.3-11.0)
[2018-07-02] MEDS: DOXYCYCLINE 100 MG (VIBRAMYCIN) TABLET PO SCH ×2 (06:09→16:32)
[2018-07-02] MEDS: LACTOBACILLUS ACIDOPHILUS (PROBIOTIC) CAPSULE PO SCH ×3 (06:09→16:32)
[2018-07-02] MEDS: IBUPROFEN 600 MG (MOTRIN) TAB PO SCH ×3 (06:09→22:36)
[2018-07-02 06:24] LABS: ALANINE AMINOTRANSFERASE 490 U/L (0-55); ALKALINE PHOSPHATASE 220 U/L (40-136); BILIRUBIN,TOTAL 2.3 MG/DL (0.1-1.0); BUN/CREATININE RATIO 14; CALCIUM 8.3 MG/DL (8.5-10.1); CARBON DIOXIDE 24 MMOL/L (21-32); CHLORIDE 106 MMOL/L (98-107); CREATININE SERUM 0.74 MG/DL (0.60-1.30); GFR ESTIMATED > 60; GLUCOSE 93 MG/DL (70-105); POTASSIUM 4.4 MMOL/L (3.6-5.0); SODIUM 136 MMOL/L (135-145); TOTAL PROTEIN 6.3 GM/DL (6.4-8.2)
[2018-07-02 07:24] LABS: BAND NEUTROPHILS 5 %; BASOPHILS % (MANUAL) 0 %; EOSINOPHILS % (MANUAL) 1 %; LYMPHOCYTES % (MANUAL) 44 %; MONOCYTES % (MANUAL) 8 %; NEUTROPHILS % (MANUAL) 18 %; RBC MORPH NORMAL; REACTIVE LYMPHOCYTES 24 %
[2018-07-02 08:00] VITALS: BP 116/66
[2018-07-02] MEDS: ONDANSETRON 4 MG/2 ML (SDV) Z0FRAN IV PRN (10:28)
[2018-07-02 12:00] VITALS: BP 124/70
--- NOTE | 2018-07-02 14:50 | Progress Note-Hospitalist ---
Progress Note Progress Notes/Assess & Plan Date Seen 07/02/18 Time Seen by Provider: 14:46 Assessment & Plan The patient reports feeling somewhat better. Vital signs are stable. The white blood count is very able between 7203-9750. The bilirubin has run steadily at 2.3. The alanine lysine transaminase is trending downward from 674 2 490. The alkaline phosphatase has climbed slightly from 176-220. The serology is now available and the tularemia is in the equivocal range at 1/40 with 1/116 and greater being positive. He also notes a degree of constipation. 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 Physical exam: The sclera are not icteric. Lungs are clear to auscultation. CV is regular without murmur. There is no palpable hepato-or splenomegaly. Skin shows no lesions. Impression: Likely viral illness with mild hepatitis. Continue IV fluids with the hope of discharge tomorrow. Focused Exam Lactate Level 06/30/18 15:05: Lactic Acid Level 1.84 MAL BENJAMIN MD Jul 02, 2018 14:50
[2018-07-02 16:40] VITALS: BP 117/55
[2018-07-02 19:10] VITALS: BP 129/69
--- NOTE | 2018-07-02 19:58 | Progress Note (SOAP) ---
Subjective Date Seen by a Provider: Jul 02, 2018 Time Seen by a Provider: 14:00 Subjective/Events-last exam clinically doing much better. no fever/chills. able to eat but still has intermittent nausea but no vomiting. minimal abd pain. Focused Exam Lactate Level 06/30/18 15:05: Lactic Acid Level 1.84 Objective Exam Vital Signs Date Time Temp Pulse Resp B/P (MAP) Pulse Ox O2 Delivery O2 Flow Rate FiO2 07/02/18 16:40 98.9 80 16 117/55 (75) 97 Room Air 07/02/18 12:00 99.6 85 20 124/70 (88) 95 Room Air 07/02/18 08:38 Room Air 07/02/18 08:00 97.3 77 20 116/66 (83) 95 Room Air 07/02/18 04:00 99.1 69 20 123/74 (90) 99 Room Air 07/02/18 00:00 98.0 69 20 119/57 (77) 98 Room Air 07/01/18 20:00 97.2 76 18 121/72 (88) 98 Room Air 07/01/18 20:00 Room Air I & O 07/02/18 07:00 Intake Total 2905 ml Balance 2905 ml Capillary Refill : Less Than 3 SecondsLess Than 3 Seconds General Appearance: No Apparent Distress HEENT: PERRL/EOMI Neck: Full Range of Motion Respiratory: Chest Non Tender, Lungs Clear, Normal Breath Sounds Cardiovascular: Regular Rate, Rhythm Gastrointestinal: normal bowel sounds, non tender, spleenomegaly Extremity: Normal Capillary Refill Neurologic/Psychiatric: Alert, Oriented x3 Skin: Normal Color Lymphatic: Axilla Node Tender (R), Other (cervical adenopathy) Results Lab Laboratory Tests 07/02/18 05:50: White Blood Count 11.8H, Red Blood Count 4.45, Hemoglobin 13.2L, Hematocrit 38L , Mean Corpuscular Volume 85, Mean Corpuscular Hemoglobin 30, Mean Corpuscular Hemoglobin Concent 35, Red Cell Distribution Width 14.2, Platelet Count 84L, Mean Platelet Volume 11.1H, Neutrophils (%) (Auto) , Lymphocytes (%) (Auto) 75H , Monocytes (%) (Auto) 17H, Eosinophils (%) (Auto) 1, Basophils (%) (Auto) , Neutrophils # (Auto) , Lymphocytes # (Auto) 8.8H, Monocytes # (Auto) 2.0H, Eosinophils # (Auto) 0.1, Basophils # (Auto) , Neutrophils % (Manual) 18, Lymphocytes % (Manual) 44, Monocytes % (Manual) 8, Eosinophils % (Manual) 1, Basophils % (Manual) 0, Band Neutrophils 5, Reactive Lymphocytes 24, Blood Morphology Comment NORMAL, Sodium Level 136, Potassium Level 4.4, Chloride Level 106, Carbon Dioxide Level 24, Anion Gap 6, Blood Urea Nitrogen 10, Creatinine 0.74, Estimat Glomerular Filtration Rate > 60, BUN/Creatinine Ratio 14, Glucose Level 93, Calcium Level 8.3L, Corrected Calcium 9.1, Total Bilirubin 2.3H, Aspartate Amino Transf (AST/SGOT) 301H, Alanine Aminotransferase (ALT/SGPT) 490H, Alkaline Phosphatase 220H, Total Protein 6.3L , Albumin 3.0L Microbiology 06/30/18 Blood Culture - Preliminary, Resulted No growth 06/30/18 Gram Stain - Final, Complete 06/30/18 Sputum Culture - Final, Complete Usual/normal joe isolated. Assessment/Plan Assessment/Plan Assess & Plan/Chief Complaint acute mono. continue vibramycin while in-patient. no contact/strenuous activities for a least 6 weeks. WBC and fevers normalizing. slight elevation alk phos. will monitor this but if improves admitting will d/c home. Clinical Quality Measures DVT/VTE Risk/Contraindication: Risk Factor Score Per Nursin RFS Level Per Nursing on Admit: 3=High MARIA FERNANDA FELDER MD Jul 02, 2018 19:58
[2018-07-02] MEDS: HYDROcodone/APAP 5 MG/325 MG (LORTAB) TAB PO PRN (20:40)
[2018-07-03 00:35] VITALS: BP 129/71
[2018-07-03] MEDS: NS IV 1000 ML 1,000 ML IV SCH (04:11)
[2018-07-03 04:51] VITALS: BP 129/76
[2018-07-03 05:13] LABS: HEMATOCRIT 39 % (40-54); HEMOGLOBIN 13.3 G/DL (13.3-17.7); MEAN CORPUSCULAR HEMOGLOBIN 29 PG (25-34); MEAN CORPUSCULAR HGB CONC 34 G/DL (32-36); MEAN CORPUSCULAR VOLUME 83 FL (80-99); MEAN PLATELET VOLUME 10.6 FL (7.4-10.4); PLATELET COUNT 121 10^3/uL (130-400); RED BLOOD COUNT 4.65 10^6/uL (4.35-5.85); RED CELL DISTRIBUTION WIDTH 14.6 % (10.0-14.5); WHITE BLOOD COUNT 17.6 10^3/uL (4.3-11.0)
[2018-07-03 05:31] LABS: ALANINE AMINOTRANSFERASE 510 U/L (0-55); ALBUMIN 3.3 GM/DL (3.2-4.5); ALKALINE PHOSPHATASE 311 U/L (40-136); BILIRUBIN,DIRECT 1.4 MG/DL (0.0-0.3); BILIRUBIN,INDIRECT 0.7 MG/DL; BILIRUBIN,TOTAL 2.1 MG/DL (0.1-1.0); BUN/CREATININE RATIO 6; CALCIUM 8.8 MG/DL (8.5-10.1); CARBON DIOXIDE 25 MMOL/L (21-32); CHLORIDE 105 MMOL/L (98-107); CREATININE SERUM 0.77 MG/DL (0.60-1.30); GFR ESTIMATED > 60; GLUCOSE 91 MG/DL (70-105); POTASSIUM 4.3 MMOL/L (3.6-5.0); SODIUM 138 MMOL/L (135-145); TOTAL PROTEIN 7.3 GM/DL (6.4-8.2)
[2018-07-03 05:41] LABS: BAND NEUTROPHILS 2 %; EOSINOPHILS % (MANUAL) 2 %; LYMPHOCYTES % (MANUAL) 40 %; MONOCYTES % (MANUAL) 5 %; NEUTROPHILS % (MANUAL) 5 %; RBC MORPH NORMAL; REACTIVE LYMPHOCYTES 46 %
[2018-07-03] MEDS: LACTOBACILLUS ACIDOPHILUS (PROBIOTIC) CAPSULE PO SCH ×2 (06:34→12:50)
[2018-07-03] MEDS: IBUPROFEN 600 MG (MOTRIN) TAB PO SCH ×2 (06:35→14:39)
[2018-07-03] MEDS: DOXYCYCLINE 100 MG (VIBRAMYCIN) TABLET PO SCH (06:35)
[2018-07-03 08:36] VITALS: BP 129/77
--- NOTE | 2018-07-03 09:47 | Discharge Summary-Hospitalist ---
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 Called and discussed with PCP Mouna Hartley who will follow as an outpatient Continue doxycycline (3) Sepsis Status: Resolved Assessment & Plan: Now resolved (4) Abdominal pain Assessment & Plan: Abd pain improved CT Abd just shows splenomegaly (5) Transaminitis Assessment & Plan: As above (6) Thrombocytopenia Assessment & Plan: Improving Likely due to mono and splenomegaly Discharge Summary Procedures/Consulations Dr Layne- Surgery Discharge Physical Exam Allergies: Coded Allergies: Beef Containing Products (Verified Allergy, Unknown, 06/30/18) Pork/Porcine Containing Products (Verified Allergy, Unknown, 06/30/18) cefdinir (Verified Allergy, Unknown, 06/30/18) Uncoded Allergies: PCN (Allergy, Unknown, 02/09/18) Vitals & I&Os Vital Signs Date Time Temp Pulse Resp B/P (MAP) Pulse Ox O2 Delivery O2 Flow Rate FiO2 07/03/18 08:36 99.7 80 17 129/77 (94) 98 Room Air 06/30/18 15:15 97.00 General Appearance: No Apparent Distress, WD/WN Respiratory: Lungs Clear Cardiovascular: Regular Rate, Rhythm, No Murmur Gastrointestinal: Normal Bowel Sounds, Non Tender, Soft; No Hepatomegaly, No Splenomegaly Neurologic/Psychiatric: Alert, Oriented x3 Hospital Course Pt was admitted for fever with transaminitis. He was found to have acute mononucleosis likely as the etiology of his lab abnormalities. Due to abdominal pain he was seen by his surgeon Dr Layne for evaluation and CT Abd/pelvis was done. His CT abd was significant only for splenomegaly. He was found to be positive for Tularemia. He continued to improve symptomatically though labs remained near stable or mildly improved. Due to this his family requested evaluation by infectious disease as his tularemia titer was positive and felt symptoms were due to this. I called and discussed this with Dr Damian, [facility] at [facility], who agreed to evaluate patient if the hospitalist accepted. I then spoke with Dr Croft, hospitalist at [facility], who accepted patient in transfer for infectious disease consult and possible GI evaluation. Family elected transfer via private vehicle. He was discharged in stable condition. Labs (last 24 hrs) Laboratory Tests 07/03/18 04:54: White Blood Count 17.6H, Red Blood Count 4.65, Hemoglobin 13.3, Hematocrit 39L, Mean Corpuscular Volume 83, Mean Corpuscular Hemoglobin 29, Mean Corpuscular Hemoglobin Concent 34, Red Cell Distribution Width 14.6H, Platelet Count 121L, Mean Platelet Volume 10.6H, Neutrophils (%) (Auto) , Lymphocytes (%) (Auto) , Monocytes (%) (Auto) , Eosinophils (%) (Auto) , Basophils (%) (Auto) , Neutrophils # (Auto) , Lymphocytes # (Auto) , Monocytes # (Auto) , Eosinophils # (Auto) , Basophils # (Auto) , Neutrophils % (Manual) 5, Lymphocytes % (Manual ) 40, Monocytes % (Manual) 5, Eosinophils % (Manual) 2, Band Neutrophils 2, Reactive Lymphocytes 46, Blood Morphology Comment NORMAL, Sodium Level 138, Potassium Level 4.3, Chloride Level 105, Carbon Dioxide Level 25, Anion Gap 8, Blood Urea Nitrogen 5L, Creatinine 0.77, Estimat Glomerular Filtration Rate > 60 , BUN/Creatinine Ratio 6, Glucose Level 91, Calcium Level 8.8, Corrected Calcium 9.4, Total Bilirubin 2.1H, Direct Bilirubin 1.4H, Indirect Bilirubin 0.7 , Aspartate Amino Transf (AST/SGOT) 322H, Alanine Aminotransferase (ALT/SGPT) 510#H, Alkaline Phosphatase 311H, Total Protein 7.3, Albumin 3.3 Microbiology 06/30/18 Blood Culture - Preliminary, Resulted No growth 06/30/18 Gram Stain - Final, Complete 06/30/18 Sputum Culture - Final, Complete Usual/normal joe isolated. Patient resulted labs reviewed. Pending Labs Discussion & Recommendations Discharge Planning: >30 minutes discharge planning Discharge Home Medications: Active Scripts Active Zofran Odt (Ondansetron) 4 Mg Tab.rapdis 4 Mg SL Q4H PRN Doxycycline Hyclate 100 Mg Tablet 100 Mg PO BID@ Reported Tamiflu (Oseltamivir Phosphate) 75 Mg Cap 75 Mg PO BID 5 Days FILLED #10 06-28-18 Levaquin (Levofloxacin) 500 Mg Tablet 500 Mg PO DAILY 7 Days 7 DAY SUPPLY FILLED 06-25-18 Instructions to patient/family Please see electronic discharge instructions given to patient. Clinical Quality Measures DVT/VTE Risk/Contraindication: Risk Factor Score Per Nursin RFS Level Per Nursing on Admit: 3=High Copy Copies To 1: BETTY HARTLEY DO Problem Qualifiers (1) Sepsis: Sepsis type: sepsis due to unspecified organism Qualified Codes: A41.9 - Sepsis, unspecified organism (2) Abdominal pain: Abdominal location: right lower quadrant Qualified Codes: R10.31 - Right lower quadrant pain MARCIA MOREAU MD Jul 03, 2018 9:47 am
[2018-07-03] MEDS ORDERED: ONDA4TAB8 SL (09:53)
[2018-07-03] MEDS ORDERED: DOXY100T2 PO (09:53)
[2018-07-03 12:00] VITALS: BP_SYST 111; BP_SYST 124; BP_DIAS 56; BP_DIAS 77
[2018-07-03 15:49] VITALS: BP 124/77
== END 2018-07-03 15:25 | disposition home or self-care (01) ==
LOC: SDC 09:55 → 4TH 13:30 → SDC 13:37
PROVIDERS: ATTEND Family Medicine
DX: E86.0 Dehydration (principal); R50.9 Fever, unspecified; R59.1 Generalized enlarged lymph nodes; R05 Cough
CPT/HCPCS: 36415; 71045; 74177; 80053; 80076; 81000; 83605; 85007; 85027; 85610; 86141; 86308; 86635; 86668; 86738; 87040; 87070; 87205; 87385; 87804; 94664; 96361; 96374

== ENCOUNTER → 2018-08-28 | Outpatient (CLI) | payer BC ==
[~2018-08-28] MED LIST changes: +DOXY100T2 PO; +LEVO500T2 PO; +ONDA4TAB8 SL; +OSLT75C PO
--- NOTE | 2018-08-28 11:00 | Diagnostic Imaging Report ---
PROCEDURE: CT abdomen and pelvis without contrast. TECHNIQUE: Multiple contiguous axial images were obtained through the abdomen and pelvis without the use of intravenous contrast. INDICATION: Hepatosplenomegaly. Comparison is made with prior CT from 06/30/2018. Lung bases are clear. Patient has a pectus excavatum deformity. Liver and spleen have decreased in size since prior CT. The liver measures approximately 19.5 cm compared with 21.9 cm. The spleen measures 14.8 cm compared with 19.3 cm. The gallbladder and pancreas are unremarkable. No adrenal mass is seen. No renal calculi or hydronephrosis is detected. Aorta is non-aneurysmal. The small and large bowel loops are normal caliber. There is no ascites. IMPRESSION: Hepatosplenomegaly, however, size of the liver and spleen have decreased when compared with prior CT from 06/30/2018. Dictated by: Dictated on workstation # [id number]
== END ==
LOC: RAD 09:30
PROVIDERS: ATTEND Nurse Practitioner Family
DX: R16.2 Hepatomegaly with splenomegaly, not elsewhere classified (principal)
CPT/HCPCS: 74176